=== PATIENT | male | born 1990 | race Caucasian/White ===

== ENCOUNTER 2017-05-18 19:12 | Emergency (ER) | payer SELFPAY ==
[2017-05-18] MEDS ORDERED: CHLORHEXIDINE GLUCONATE 4 % 15 ML UD TOP ONE (19:28)
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
[2017-05-18 20:20] VITALS: BP 145/91; TEMP 98.3; O2SAT 93
== END 2017-05-18 20:15 | disposition home or self-care (01) ==
LOC: ER 19:12
DX: S01.01XA Laceration without foreign body of scalp, initial encounter (principal); W50.0XXA Accidental hit or strike by another person, initial encounter; Y93.19 Activity, other involving water and watercraft; Y92.828 Other wilderness area as the place of occurrence of the external cause